=== PATIENT | female | born 1930 | race Caucasian/White ===

== ENCOUNTER 2018-05-20 14:58 | Emergency (ER) | payer MEDICARE ==
[2018-05-20 15:29] LABS: #Basophils 0.1 thou/uL (0.0-0.2); #Eosinphils 0.2 thou/uL (0.0-0.7); #Lymphocytes 1.4 thou/uL (1.20-3.40); #Monocytes 0.6 thou/uL (0.11-0.59); #Neutrophils 4.3 thou/uL (1.40-6.50); %Basophils 0.8 % (0.0-1.0); %Eosinophils 3.6 % (0.0-10.0); %Lymphocytes 21.9 % (21.0-51.0); %Monocytes 8.8 % (0.0-10.0); Hemoglobin 14.1 g/dL (12.0-16.0); Mean Corpuscular HGB CONC 32.9 g/dL (32.0-36.0); Mean Corpuscular Hemoglobin 31.3 pg (27.0-31.0); Mean Corpuscular Volume 95.2 fL (78.0-98.0); Mean Platelet Volume 8.5 fL (7.4-10.4); Platelet Count 192 thou/uL (130-400); RBC Distribution Width 12.5 % (11.5-14.5); White Blood Cell (WBC) Count 6.6 thou/uL (4.8-10.8)
[2018-05-20 15:36] LABS: INR-International Normal Ratio 1.4; Prothrombin Time 16.9 SEC (12.0-14.7)
[2018-05-20 15:37] LABS: PTT 38.9 SEC (22.9-36.1)
--- NOTE | 2018-05-20 15:45 | RAD ---
PORTABLE AP CHEST XRAY: DATE: 05/20/18. HISTORY: The patient feels as if her heart is racing. History of atrial fibrillation. COMPARISON: 10/18/16. FINDINGS: A left subclavian MediPort catheter remains in place. Cardiac silhouette remains enlarged. Vascular calcification is seen in the thoracic aorta. There is mild elevation of the left hemidiaphragm grea ter involving the lateral aspect left hemidiaphragm unchanged from prior exam. Pleural and parenchym al changes of the right lung base have resolved. The lungs do appear clear on today's exam. Remote lower right-sided rib fracture is seen. There is severe left glenohumeral osteoarthropathy again pre sent. No other interval change. IMPRESSION: Cardiomegaly without overt congestive heart failure. POS: TIMOTHY
[2018-05-20 15:51] LABS: ALT (SGPT) 10 U/L (8-55); AST (SGOT) 14 U/L (5-34); Alkaline Phosphatase 91 U/L (40-150); Anion Gap 12 mmol/L (10-20); BUN (Urea Nitrogen) 22 mg/dL (9.8-20.1); Bilirubin, Total 0.6 mg/dL (0.2-1.2); CK (CPK) 37 U/L (29-168); Calc. Creatinine Clearance 0 mL/min (70-130); Calcium 9.9 mg/dL (7.8-10.44); Carbon Dioxide 29 mmol/L (23-31); Chloride 104 mmol/L (98-107); Estimated GFR-MDRD 47; Globulin 3.2 g/dL (2.4-3.5); Glucose 97 mg/dL (83-110); Potassium 3.8 mmol/L (3.5-5.1); Protein, Total 7.2 g/dL (6.0-8.3); Sodium 141 mmol/L (136-145)
[2018-05-20 15:56] LABS: CKMB 1.3 ng/mL (0-6.6); Troponin I Less than 0.010 ng/mL (< 0.028)
== END 2018-05-20 19:30 | disposition home or self-care (01) ==
LOC: ERS 14:58
DX: I48.91 Unspecified atrial fibrillation (principal); I25.10 Atherosclerotic heart disease of native coronary artery without angina pectoris; I11.0 Hypertensive heart disease with heart failure; I50.9 Heart failure, unspecified; Z79.82 Long term (current) use of aspirin; Z79.899 Other long term (current) drug therapy
CPT/HCPCS: 71045; 80053; 82550; 82553; 84484; 85025; 85610; 85730; 93005

== ENCOUNTER 2019-09-06 11:40 | Outpatient (CLI) | payer MEDICARE ==
--- NOTE | 2019-09-06 14:45 | PET ---
Radionucleotide scan with CT attenuation correction HISTORY: Stomach cancer. Initial staging. FINDINGS: Physiologic uptake of radiotracer present throughout the enteric system and along each urin marlon tract. Nonspecific nonmasslike muscular uptake around the shoulders. Left shoulder prosthesis. At the upper stomach near the GE junction, markedly increased radiotracer uptake correlates with the historically stated primary cancer. SUV 17.2. No abnormal uptake is evident within the liver. No other areas of abnormal radiotracer activity. Nondiagnostic CT attenuation correction images show prominent calcification throughout the arterial s tructures. Large hyperdense stones in the dependent portion of the gallbladder lumen. Retroaortic left renal vein. Mild calcified fibroid involvement of the uterus. Severe degenerative changes lumbar spine. Reactive appearing nonpathologic lymph nodes at each inguinal chain. Varicosities of the upper legs. IMPRESSION: Large primary neoplasm of the stomach. No evidence of metastatic disease. Cholelithiasis. Atherosclerosis.
== END 2019-09-06 11:41 | disposition home or self-care (01) ==
LOC: PET 11:40
PROVIDERS: ATTEND Radiology Radiation Oncology
DX: C16.0 Malignant neoplasm of cardia (principal); K80.20 Calculus of gallbladder without cholecystitis without obstruction; I70.90 Unspecified atherosclerosis
CPT/HCPCS: 78815; A9552

== ENCOUNTER 2019-10-07 11:42 | Inpatient (IN) | payer MEDICARE ==
[2019-10-07] MEDS ORDERED: Fentanyl 100 MCG/2 ML VIAL ONE (12:06)
[2019-10-07 12:34] LABS: #Eosinphils 0.1 thou/uL (0.0-0.7); #Lymphocytes 0.2 thou/uL (1.20-3.40); #Monocytes 0.3 thou/uL (0.11-0.59); #Neutrophils 1.8 thou/uL (1.40-6.50); %Lymphocytes 8.5 % (21.0-51.0); %Monocytes 10.9 % (0.0-10.0); %Neutrophils 77.6 % (42.0-75.0); Mean Corpuscular HGB CONC 34.7 g/dL (32.0-36.0); Mean Corpuscular Hemoglobin 31.6 pg (27.0-31.0); Mean Corpuscular Volume 91.3 fL (78.0-98.0); Mean Platelet Volume 8.4 fL (7.4-10.4); Platelet Count 161 thou/uL (130-400); RBC Distribution Width 13.2 % (11.5-14.5); Red Blood Cell (RBC) Count 3.49 mill/uL (4.20-5.40); White Blood Cell (WBC) Count 2.3 thou/uL (4.8-10.8)
--- NOTE | 2019-10-07 12:41 | RAD ---
PORTABLE CHEST: 10/07/2019 PROVIDED CLINICAL HISTORY: Chest pain. COMPARISON: 05/20/2018 FINDINGS: The cardiac silhouette appears enlarged. A left subclavian implanted port is redemonstrated in simila r position. Vascular calcification involves the aortic arch. No focal consolidation, pleural fluid or pneumothorax apparent. IMPRESSION: No evidence for an acute cardiopulmonary process. POS: ADILENE
[2019-10-07 12:51] LABS: ALT (SGPT) 8 U/L (8-55); AST (SGOT) 13 U/L (5-34); Albumin 3.4 g/dL (3.4-4.8); Alkaline Phosphatase 72 U/L (40-110); Anion Gap 13 mmol/L (10-20); BUN (Urea Nitrogen) 17 mg/dL (9.8-20.1); Bilirubin, Total 0.5 mg/dL (0.2-1.2); Calc. Creatinine Clearance 0 mL/min (70-130); Calcium 8.5 mg/dL (7.8-10.44); Carbon Dioxide 26 mmol/L (23-31); Chloride 100 mmol/L (98-107); Estimated GFR-MDRD 61; Glucose 147 mg/dL (83-110); Lipase 18 U/L (8-78); Magnesium 1.8 mg/dL (1.6-2.6); Potassium 3.4 mmol/L (3.5-5.1); Protein, Total 5.4 g/dL (6.0-8.3); Sodium 136 mmol/L (136-145)
[2019-10-07] MEDS ORDERED: Iopamidol-370 76% 500 ML 1 ML ONE (13:32)
--- NOTE | 2019-10-07 13:47 | CT ---
CT ANGIO CHEST PERFORMED WITH INTRAVENOUS CONTRAST ENHANCEMENT WITH 3D RECONSTRUCTIONS: HISTORY: Adenocarcinoma of the GE junction. Chest pain and low grade fever. FINDINGS: There are some atelectatic changes in the lung bases, slightly greater within the left lung base. The re is no confluent infiltrative process. There is an area of slight nodular parenchymal change adjace nt to the aortic arch. I would favor that this represents nodular scarring and it measures approximat roberta 9.6 mm in size. In comparing to a previous PET scan examination from 09/06/2019, it is stable and is not described as showing any uptake on that PET scan. There is no significant mediastinal or hilar adenopathy. There is suggestion of some wall thickening to the distal esophagus. The thoracic aorta is normal in caliber. There is good pulmonary artery opacification and no CT evidence for pulmonary embolus. The visualized liver parenchyma shows no focal findings. A large gallstone is noted. IMPRESSION: 1. No CT evidence for pulmonary embolus. 2. Minimal atelectatic changes in the right base and slightly more pronounced left lower lobe atelect asis and a small left effusion. 3. Distal esophageal wall thickening. 4. Gallstones. 5. No CT evidence for pulmonary embolus. POS: DEMAR
[2019-10-07] MEDS ORDERED: Aspirin Chewable 81 MG TAB ONE (15:48)
[2019-10-07] MEDS ORDERED: Piperacillin/Tazobactam 3.375 GM in Sodium Chloride 0.9% 100 ML IVPB SCH (18:00)
[2019-10-07] MEDS ORDERED: Vancomycin HCl 1.25 GM in Sodium Chloride 0.9% 250 ML 250 ML IVPB SCH (20:00)
[2019-10-07] MEDS: Sodium Chloride 0.9% 1,000 ML IV SCH (21:33)
[2019-10-07] MEDS: Pantoprazole 40 MG VIAL IVP SCH (21:42)
[2019-10-07] MEDS: Piperacillin/Tazobactam 3.375 GM in Sodium Chloride 0.9% 100 ML IVPB SCH (21:48)
[2019-10-07] MEDS: Vancomycin HCl 1.25 GM in Sodium Chloride 0.9% 250 ML 250 ML IVPB SCH (23:11)
[2019-10-07] MEDS ORDERED: Acetaminophen 650 MG Suppository PR PRN (23:42)
[2019-10-07] MEDS ORDERED: Morphine 2 MG/ML SYRINGE SLOW IVP PRN (23:43)
--- NOTE | 2019-10-08 00:09 | HP ---
CHIEF COMPLAINT: Chest and abdominal pain. HISTORY OF PRESENT ILLNESS: This patient is an 89-year-old female, followed by Dr. Hector Green who initially started developing some dysphagia. Some time ago, she had a shoulder surgery, got through a left shoulder replacement, followed up with her PCP, who referred her for esophageal dilatation. At that time, the patient was discovered to have a cancer at the gastroesophageal junction. She started chemotherapy and radiation therapy on the same day on 09/24. Subsequent to that, the patient had mild nausea that resolved. Then, she developed what she thought were more like cold symptoms with cough, some low-grade fever, and gradually she has developed increased pain between her shoulder blades and in the center of her chest. She describes it as a pressure type pain that is in the center of the chest, radiating straight through to her back. She has no associated nausea or vomiting. Frequently, has a sensation like she needs to belch. She does have frequent cough that is productive of a discolored yellow sputum. She continues to have a waxing and waning pattern with her dysphagia, some days being able to eat fairly well, other days having to pause to allow passage through the esophagus. The patient also reports that she has diarrhea that started about 3 days ago, frequent watery stools. She was actually taking MiraLAX and quit that 3 days ago when these symptoms started. She has not had any since she has been here at the hospital, which has been a bit out of the ordinary typically having about 5 per day. REVIEW OF SYSTEMS: Denies any shortness of breath. Just the tightness feeling. She has been voiding fairly well and again having a diarrhea and fever as mentioned above. All other systems reviewed, pertinent positives and negatives noted in the HPI. PAST MEDICAL HISTORY: Hypertension, hyperlipidemia, atrial fibrillation, chronic kidney disease stage 3, breast cancer, leukemia, and chronic right upper extremity lymphedema for one year. PAST SURGICAL HISTORY: Right mastectomy, bilateral total knee replacements, left shoulder replacement in April, and a MediPort placement. FAMILY HISTORY: Mother of breast cancer. Father of an IA. SOCIAL HISTORY: Nonsmoker, nondrinker, nondrug user. . She lives independently with family nearby. She is a DNR and her son, daughter or granddaughter would all be surrogate decision makers for her should that become necessary. ALLERGIES: BACITRACIN, NEOMYCIN, AND POLYMYXIN B. CURRENT MEDICATIONS: 1. Eliquis 5 mg b.i.d. 2. Clonidine 0.1 mg at bedtime. 3. Rosuvastatin 5 mg daily. 4. Pantoprazole 40 mg one p.o. daily. 5. Metoprolol ER 200 mg daily. 6. Lasix 40 mg daily. 7. Amiodarone 200 mg one half tablet daily. 8. Olmesartan 40 mg daily. 9. PreserVision two tablets daily. 10. Super B Complex one tablet daily. 11. CoQ10 mg p.o. daily. PHYSICAL EXAMINATION: VITAL SIGNS: Heart rate 70s with BP 160 over 70s, respirations 16. GENERAL APPEARANCE: Age-appropriate female, in no distress. She is awake, alert, pleasant, cooperative. HEENT: PERRL. She has no OP lesions. NECK: Supple and symmetric. HEART: Regular rate and rhythm with no murmurs, gallops, or rubs. LUNGS: Clear to auscultation bilaterally with no wheezes or rales. ABDOMEN: Soft, nontender, and nondistended. Positive bowel sounds. No masses. No organomegaly. EXTREMITIES: No cyanosis or clubbing. She has edema of the right upper extremity which is lymphedema and nonpitting. PSYCH: Normal affect and behavior. NEUROLOGICAL: Normal cognition. Normal cranial nerve function. No focal deficits. Moves all extremities spontaneously. IMAGING STUDIES: Chest x-ray negative. CT of the chest PE protocol shows no evidence of PE. Minimal atelectatic changes at the right base, slightly more pronounced left lower atelectasis and small left effusion. Distal esophageal wall thickening, gallstones. No evidence of PE. EKG shows nonspecific findings, nothing diagnostic of ischemia. LABORATORY DATA: White count 2.3, hemoglobin 10, platelets 161. Sodium 136, potassium 3.4, chloride 100, CO2 of 26, BUN 17, creatinine 0.88, glucose 147, lactic acid 2.1, magnesium 1.8, AST 13, ALT 8. Troponin less than 0.01. BNP is 160. Total protein 5.4, albumin 3.4. Flu screen is negative. IMPRESSION AND PLAN: 1. Esophageal cancer with related severe dysphagia. At this point, the patient is very intermittently able to take any p.o. and does not appear to be capable of taking adequate amounts at this time, therefore she is admitted to the hospital, started on IV fluids. Concerning for the possibility of her radiation esophagitis, we will consult Radiation Oncology. We will likely need to consider involving GI. 2. Esophageal junction cancer, on chemotherapy. Consult Radiation Oncology with Dr. Anderson and Medical Oncology with Dr. Hsu. 3. Fever with productive cough concerning for pneumonia, which is not manifested on chest x-ray because of dehydration. Also concerning for the possibility could be some recurrent aspiration. We will cover with vancomycin and Zosyn, especially in light of the mild leukopenia. 4. Mild leukopenia, likely related to chemotherapy. 5. History of atrial fibrillation, holding her Eliquis until we can determine better what is going to need to be done for the dysphagia and potential esophagitis. We will continue on her metoprolol. 6. History of diastolic heart failure, holding Lasix. She is unable to adequately hydrate at the moment. 7. Hypertension. Continuing olmesartan and metoprolol holding clonidine for now. 8. Hyperlipidemia. Holding rosuvastatin until she can swallow better. Job ID: [id number]
[2019-10-08] MEDS: Piperacillin/Tazobactam 3.375 GM in Sodium Chloride 0.9% 100 ML IVPB SCH ×4 (04:15→20:54)
[2019-10-08 05:03] LABS: Anion Gap 11 mmol/L (10-20); BUN (Urea Nitrogen) 11 mg/dL (9.8-20.1); Calc. Creatinine Clearance 74 mL/min (70-130); Calcium 8.1 mg/dL (7.8-10.44); Carbon Dioxide 25 mmol/L (23-31); Chloride 104 mmol/L (98-107); Estimated GFR-MDRD 86; Glucose 87 mg/dL (83-110); Sodium 137 mmol/L (136-145)
[2019-10-08 05:05] LABS: Potassium 2.8 mmol/L (3.5-5.1)
[2019-10-08 05:07] LABS: Band 11 % (5-11); Eosinophils 1 % (0-10); Hypochromia SLIGHT = 6-15 cells (100X) (0-5/hpf); Lymphocytes 9 % (21-51); MDiff Complete? YES; Mean Corpuscular HGB CONC 33.6 g/dL (32.0-36.0); Mean Corpuscular Hemoglobin 30.5 pg (27.0-31.0); Mean Corpuscular Volume 90.9 fL (78.0-98.0); Mean Platelet Volume 8.3 fL (7.4-10.4); Monocytes 8 % (0-10); Neutrophil 71 % (42-75); Platelet Count 150 thou/uL (130-400); Platelet Morphology Comment Appears Adequate; RBC Distribution Width 13.3 % (11.5-14.5); Red Blood Cell (RBC) Count 3.28 mill/uL (4.20-5.40); White Blood Cell (WBC) Count 2.1 thou/uL (4.8-10.8)
[2019-10-08] MEDS ORDERED: Potassium Chloride 10 MEQ in Premix Bag 1 BAG IVPB SCH (05:15)
[2019-10-08] MEDS ORDERED: Potassium Chloride 20 MEQ in Premix Bag 1 BAG IVPB SCH (05:15)
[2019-10-08] MEDS: Potassium Chloride 20 MEQ in Premix Bag 1 BAG IVPB SCH ×3 (05:39→10:51)
[2019-10-08] MEDS ORDERED: FLU VACC TS2019-20(65YR UP)/PF 180 MCG/0.5 ML SYRINGE IM ONE (09:00)
[2019-10-08] MEDS: Pantoprazole 40 MG VIAL IVP SCH ×2 (09:23→19:53)
--- NOTE | 2019-10-08 10:34 | PRG ---
DATE OF SERVICE: 10/08/2019 SUBJECTIVE: Ms. Palomares is an 89-year-old female, well known to me. 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 She was admitted to the hospital yesterday because of chest pain and being unable to swallow. She has also had some cough, which is mostly nonproductive. She has had some low-grade fever since Tuesday. The chest pain seems to be better with some belching. She did have a CT angiogram which was negative, and a chest x-ray which was negative. OBJECTIVE: VITAL SIGNS: T-max 100.2, current temperature is 99.1, blood pressure 148/67, pulse is 69, respirations 16, O2 saturations 93% on room air. Height 5 feet and 3 inches. Weight 169 pounds. CONSTITUTIONAL: She is alert and oriented, in no apparent distress. She is well developed and well nourished. Karnofsky performance status is 70%. HEENT: Eyes; pupils are equal, round, and reactive to light. Extraocular movements are intact. ENT; oral cavity and oropharynx are normal without lesion or erythema. Palate elevates symmetrically. Gingiva is intact. NECK: Supple without cervical or supraclavicular adenopathy. No thyromegaly. Larynx midline. LUNGS: Breathing nonlabored. There are some crackles in the right lower lobe. Otherwise, clear to auscultation and percussion. CARDIOVASCULAR/HEART: Regular rate and rhythm without murmur. EXTREMITIES: No lower extremity edema. ABDOMEN: Bowel sounds are present. Soft, nontender, nondistended without mass or hepatosplenomegaly. Liver percusses to normal size. RADIOLOGIC DATA: CT angiogram and chest x-ray were personally reviewed and were negative for either metastatic disease or evidence of pneumonia. LABORATORY DATA: CBC; white blood cell count was 2100, hemoglobin 10.0, hematocrit of 29.8, platelet count 150,000. Yesterday, her white count was 2.3 with a neutrophil count of 1.8. Chemistry group showed a potassium of 2.8. ASSESSMENT: Ms. 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 I think her signs and symptoms are likely from obstruction from her disease. She could possibly have pneumonia with her low-grade fevers, but is currently on antibiotics for that. PLAN: I would defer to Medical Oncology regarding her lowered white blood cell count and pneumonia possibility. She is on antibiotics that would cover this. She is not neutropenic. I do not think her signs and symptoms are related to radiation esophagitis. I think most likely these are related to obstruction from her tumor. I think she is going to need a feeding tube. Ordinarily, if we were going to consider surgical resection after chemotherapy and radiation, the feeding tube would need to be a J-tube and the placement of which could be a critical considering that they do minimally invasive esophagectomies. However, given her age and other comorbidities, I do not think she is a good candidate for surgical resection. She does not wish to pursue surgical resection either. Therefore, I think the feeding tube could even be a PEG tube if this is possible. It may not be possible given her clinical obstruction as they may not be able to pass the scope past the tumor mass. However, they may be able to pass the scope past the mass in place of PEG tube. I agree with having GI evaluate her. In terms of her cancer, I think we can continue her treatment with radiation. She is eager to do so as well. We will make arrangements for her to continue her treatment while she is here in the hospital. Job ID: [id number]
[2019-10-08] MEDS: Losartan 25 MG TAB PO SCH (11:47)
[2019-10-08] MEDS: Amiodarone 200 MG TAB PO SCH (11:47)
[2019-10-08] MEDS: Sodium Chloride 0.9% 1,000 ML IV SCH ×2 (11:47→19:54)
--- NOTE | 2019-10-08 13:45 | CON ---
DATE OF CONSULTATION: 10/08/2019 REQUESTING PHYSICIAN: Yuri Villela MD REASON FOR CONSULTATION: Dysphagia, consider PEG tube placement. HISTORY OF PRESENT ILLNESS: Jose Palomares is a very pleasant 89-year-old woman. She has atrial fibrillation and is on Eliquis. She has a prior history of leukemia and breast cancer. She reports that starting sometime last summer, she began to have some dysphagia to solids. She would have to chew her food more thoroughly, wash her food down with more water, eat more slowly and would feel as if food was hanging up in the mid chest. She eventually underwent upper endoscopy elsewhere in late July 2019. Evidently this demonstrated a mass at the GE junction and was found to represent a carcinoma on biopsies. I do not have any of those reports, but the patient was finally started on radiation and chemotherapy on 09/24/2019 and has been doing this for the past couple of weeks. She reports throughout this time, she has continued to have dysphagia, which has been slowly progressive. This reached the point over the past several days, where she has felt unable to take in adequate calories, liquids will go down, but not solids. She was evaluated here with a CT of the chest and thorax and there is wall thickening in the distal esophagus. She was seen by Dr. Anderson, who has recommended we consider PEG tube placement. Notably, she is not considered to be a surgical candidate. She is DNR, but she is open to enteral nutrition. REVIEW OF SYSTEMS: Full review of systems including constitutional, head, eyes, ears, nose, throat, GI, , cardiovascular, respiratory, musculoskeletal, and neurologic systems are negative except as noted in the HPI. PAST MEDICAL HISTORY: Atrial fibrillation, hypertension, hyperlipidemia, diabetes, chronic kidney disease, breast cancer, leukemia, chronic right upper extremity lymphedema, right-sided mastectomy, bilateral total knee replacement, left shoulder replacement in April 2019, Mediport placement, and cancer of the GE junction diagnosed in July 2019. FAMILY HISTORY: Mother of breast cancer. SOCIAL HISTORY: No smoking, alcohol, or drug use. She is . She is DNR, has good family support. ALLERGIES: BACITRACIN, NEOMYCIN, AND POLYMYXIN B. OUTPATIENT MEDICATIONS: 1. Eliquis 5 mg b.i.d., this was held today. 2. Clonidine. 3. Rosuvastatin. 4. Pantoprazole 40 mg daily. 5. Metoprolol. 6. Lasix 40 mg daily. 7. Amiodarone. 8. Olmesartan. 9. PreserVision. 10. Super B complex. 11. Coenzyme Q10. PHYSICAL EXAMINATION: VITAL SIGNS: Temperature 99.1, pulse 83, blood pressure 154/71, and 95% oxygen saturation on room air. GENERAL: No acute distress, resting in bed comfortably. SKIN: No jaundice. No rashes were palpable. HEENT: Eyes, no scleral icterus. Extraocular movements intact. ENT, mucous membranes moist. No oral lesions. LYMPH: No submandibular or supraclavicular lymphadenopathy. THYROID: Nontender to palpation. HEART: Regular rate and rhythm. LUNGS: Clear to auscultation bilaterally. ABDOMEN: Nondistended. Bowel sounds present. Soft and nontender to palpation throughout. EXTREMITIES: No peripheral edema. VESSELS: Radial pulses 2+ bilaterally. NEURO: Cranial nerves 2 through 12 intact bilaterally. No focal deficits. LABORATORY STUDIES: WBC 2.1 with 77% neutrophils, hemoglobin 10.0, and platelets 150. Sodium 137, potassium 2.8, BUN 11, creatinine 0.65, and calcium 8.1. BNP is 160.3. Lipase normal at 18. LFTs all normal with total bilirubin 0.5, alkaline phosphatase 72, AST 13, and ALT 8. Troponin negative. IMAGING STUDIES: CT of the chest performed yesterday shows distal esophageal wall thickening. No CT evidence for pulmonary embolus. Some left lower lobe atelectasis, which is minimal. There are gallstones. ASSESSMENT AND PLAN: 1. Dysphagia, progressive. 2. Carcinoma of the GE junction, undergoing chemotherapy and radiation. The patient is not felt to be an operative candidate, but is undergoing chemotherapy and radiation. I agree that enteral feedings are good idea given her overall goals of care. It is not clear to what degree this tumor is causing obstruction of the distal esophagus. It is possible that this may be too small in area to endoscopically place a PEG tube. I cannot really tell from the CT scan. It is certainly worth a try. We will plan for EGD with probable PEG placement tomorrow. If PEG placement is not possible given the tumor size and location, the patient would require surgical consultation for PEG placement thereafter. Continue to hold [email or web address]. Thank you for the consultation. Please call anytime with questions or concerns. Job ID: [id number]
--- NOTE | 2019-10-08 14:51 | CON ---
DATE OF CONSULTATION: REASON FOR CONSULTATION: EG junction adenocarcinoma. HISTORY OF PRESENT ILLNESS: Ms. Palomares is an 89-year-old female with past medical history of APL, breast cancer, and newly diagnosed EG junction adenocarcinoma. She is currently undergoing treatment with carboplatin, Taxol, and radiation. She has received 2 cycles of chemo and is due for her 3rd today. She presented to the emergency room with chest pain and dysphagia. The patient has been tolerating chemo well with mild nausea 2 days after treatment. She has been able to eat soft foods, soups, and chopped meat. Her weight has been stable throughout treatment. On admission, a CT angio was done, which did not show any pulmonary emboli. Her white count was 2.3, but her ANC was normal at 1.8. She was mildly anemic. There is some questionable pneumonia and she has been placed on antibiotics. PAST MEDICAL HISTORY: 1. Acute promyelocytic leukemia in 2009. 2. Breast cancer in 2007. 3. Esophageal cancer in 2019. 4. Remote history of DVT. 5. Hypertension. 6. Hyperlipidemia. 7. Sleep apnea. 8. Atrial fibrillation. PAST SURGICAL HISTORY: 1. Shoulder surgery. 2. Right mastectomy. ALLERGIES: TO NEOSPORIN. HOME MEDICATIONS: 1. Amiodarone. 2. Catapres. 3. Lasix. 4. Toprol-XL. 5. Olmesartan. 6. Protonix. 7. Crestor. 8. Eliquis. FAMILY HISTORY: Mother had breast cancer in her 60s. SOCIAL HISTORY: . Lives alone. No alcohol, tobacco, or illicit drug use. REVIEW OF SYSTEMS: Ten-point review of systems is negative except for chest pain and dysphagia. PHYSICAL EXAMINATION: VITAL SIGNS: Temperature is 99.1, pulse is 83, respiratory rate 18, BP is 154/ 71, and she is 95% on room air. GENERAL: This is a well-developed, well-nourished female, in no acute distress. HEENT: Normocephalic and atraumatic. NECK: Supple. CV: Regular rate and rhythm. LUNGS: Clear. ABDOMEN: Soft and nontender. Bowel sounds are positive. EXTREMITIES: There is no clubbing or cyanosis. SKIN: No rash. HEMATOLOGIC: No petechiae or purpura. NEUROLOGIC: Nonfocal. PERTINENT LABORATORY AND X-RAYS: Current WBCs are 2.1, hemoglobin 10, hematocrit 29.8, platelet count is 150,000, 71% neutrophils, 11% bands, and 9% lymphocytes. Sodium 137, potassium 2.8, chloride 104, CO2 is 25, BUN is 11, creatinine 0.65. Lactic acid is 1. Calcium 8.1. Magnesium 1.8. Bilirubin 0.5, AST is 13, ALT is 8, and alkaline phosphatase is 72. BNP is 160. Serum total protein 5.4, albumin 3.4, and globulin 2. Lipase 18. CT angiogram showed no pulmonary emboli, but questionable pneumonia. ASSESSMENT: 1. Esophagogastric junction adenocarcinoma, on concurrent chemoradiation. 2. Worsening dysphagia. 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 Despite her advanced age, she lives independently, and has a good family support. The HER2 positivity is associated with an improved prognosis, so the decision was made to treat her with concurrent chemotherapy and radiation. She, however, is not a surgical candidate and she wishes to have no surgery for her cancer, so recommendation for PEG tube placement is supported. The patient wishes to proceed and is planned for tomorrow. We will provide supportive care. Thank you for the consult. We will follow along with her hospital course. Job ID: [id number] [facility]
--- NOTE | 2019-10-08 15:45 | PDOC.HOSPP ---
- Subjective Encounter Date: 10/08/19 Subjective: Doing ok. Says she was hungry last night and that made her uncomfortable. She is ready to what is necessary to get fed. - Objective Vital Signs & Weight: Vital Signs (12 hours) Temp Pulse Resp BP Pulse Ox 10/08/19 12:03 99.1 F 83 18 154/71 H 95 10/08/19 08:10 99.1 F 69 16 148/67 H 93 L 10/08/19 08:00 93 L 10/08/19 04:39 99.0 F 74 16 141/65 H 94 L Weight Weight 169 lb 8 oz I&O: 10/07/19 10/08/19 10/09/19 06:59 06:59 06:59 Intake Total 639 Balance 639 Result Diagrams: 10/08/19 04:37 10/08/19 04:37 Hospitalist ROS - Medication Medications: Active Medications Generic Name Dose Route Start Last Admin Trade Name Freq PRN Reason Stop Dose Admin Amiodarone HCl 100 mg 10/08/19 09:00 10/08/19 11:47 Cordarone PO Not Given DAILY AC Sodium Chloride 1,000 mls @ 75 mls/hr 10/07/19 17:00 10/08/19 11:47 Normal Saline 0.9% IV Not Given .[id number] AC Piperacillin Sod/Tazobactam 100 mls @ 200 mls/hr 10/07/19 22:00 10/08/19 09: 30 Sod 3.375 gm/ Sodium Chloride IVPB 100 mls 0400,1000,1600,2200 AC Administration Vancomycin HCl 1.25 gm/ Sodium 250 mls @ 166.667 mls/hr 10/07/19 23:00 23:11 Chloride IVPB 250 mls 2300 AC Administration Losartan Potassium 100 mg 10/08/19 09:00 10/08/19 11:47 Cozaar PO Not Given DAILY AC Morphine Sulfate 2 mg 10/07/19 23:43 10/08/19 04:19 Morphine SLOW IVP 2 mg Q4H PRN Administration Severe Pain (7-10) Pantoprazole Sodium 40 mg 10/07/19 21:00 10/08/19 09:23 Protonix IVP 40 mg Q12HR AC Administration Sodium Chloride 10 ml 10/07/19 21:00 10/08/19 07:52 Flush - Normal Saline IVF 10 ml Q12HR AC Administration Sodium Chloride 10 ml 10/07/19 19:22 10/08/19 04:22 Flush - Normal Saline IVF 10 ml PRN PRN Administration Saline Flush - Exam General Appearance: NAD, awake alert Neck: supple, symmetric, no JVD, no thyromegaly, no lymphadenopathy, no carotid bruit Heart: RRR, no murmur, no gallops, no rubs, normal peripheral pulses Respiratory: no wheezes, no ronchi, normal chest expansion, no tachypnea, normal percussion Respiratory - other findings: Mild right basilar rales. 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 - MALIGNANT NEOPLASM OF ESOPHAGUS, UNSPECIFIED Status: Acute (2) Dysphagia Code(s): R13.10 - DYSPHAGIA, UNSPECIFIED Status: Acute (3) Atrial fibrillation with controlled ventricular response Code(s): I48.91 - UNSPECIFIED ATRIAL FIBRILLATION Status: Chronic (4) CKD (chronic kidney disease), stage III Status: Chronic (5) Chronic anticoagulation Code(s): Z79.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 Anderson this morning. Discussed the case with Dr. Robert this morning. Holding Eliquis in anticipation of attempted PEG placement. Unclear if it will be possible at this time. She is willing to try. If not, may need to consider surgical options to place the PEG. Appears to be have some obstruction and increasing her risk for aspiration. The fever and cough are likely some aspiration pneumonitis. Continue IV abx to cover that. Holding Eliquis for procedure. I will try to give the metoprolol po. Using 25 mg tabs x 4 rather than the larger 100 mg tab. Ok to miss the amio for a day or two.
[2019-10-08] MEDS: Vancomycin HCl 1.25 GM in Sodium Chloride 0.9% 250 ML 250 ML IVPB SCH (22:54)
[2019-10-09] MEDS: Piperacillin/Tazobactam 3.375 GM in Sodium Chloride 0.9% 100 ML IVPB SCH ×4 (04:00→20:39)
[2019-10-09 08:28] LABS: Hemoglobin 10.4 g/dL (12.0-16.0); Mean Corpuscular HGB CONC 33.6 g/dL (32.0-36.0); Mean Corpuscular Hemoglobin 30.9 pg (27.0-31.0); Mean Platelet Volume 7.8 fL (7.4-10.4); Platelet Count 159 thou/uL (130-400); RBC Distribution Width 13.4 % (11.5-14.5); Red Blood Cell (RBC) Count 3.36 mill/uL (4.20-5.40); White Blood Cell (WBC) Count 2.5 thou/uL (4.8-10.8)
[2019-10-09 08:44] LABS: Anion Gap 12 mmol/L (10-20); BUN (Urea Nitrogen) 8 mg/dL (9.8-20.1); Calc. Creatinine Clearance 82 mL/min (70-130); Calcium 8.4 mg/dL (7.8-10.44); Carbon Dioxide 22 mmol/L (23-31); Chloride 107 mmol/L (98-107); Estimated GFR-MDRD Greater than 90; Glucose 75 mg/dL (83-110); Potassium 3.1 mmol/L (3.5-5.1); Sodium 138 mmol/L (136-145)
[2019-10-09 09:00] LABS: Band 11 % (5-11); Eosinophils 2 % (0-10); Lymphocytes 15 % (21-51); MDiff Complete? YES; Monocytes 6 % (0-10); Myelocyte 1 % (0-0); Neutrophil 65 % (42-75); Platelet Morphology Comment Appears Adequate; Polychromasia SLIGHT = 2-3 cells (100X) (0-2/hpf)
[2019-10-09] MEDS: Amiodarone 200 MG TAB PO SCH (09:00)
[2019-10-09] MEDS: Pantoprazole 40 MG VIAL IVP SCH ×2 (09:00→20:38)
[2019-10-09] MEDS: Sodium Chloride 0.9% 1,000 ML IV SCH ×3 (09:46→20:39)
[2019-10-09] MEDS: Losartan 25 MG TAB PO SCH (10:50)
[2019-10-09] MEDS ORDERED: PROPOFOL 200 MG/20 ML VIAL ONE (11:53)
[2019-10-09] MEDS ORDERED: Ketamine 50 MG/ML (10ML VIAL) ONE (13:57)
[2019-10-09] MEDS ORDERED: Potassium Chloride 40 MEQ in Premix Bag 1 BAG IVPB SCH (15:30)
--- NOTE | 2019-10-09 15:32 | OP ---
DATE OF PROCEDURE: 10/09/2019 PREPROCEDURE DIAGNOSIS: Oropharyngeal dysphagia secondary to esophageal cancer and treatment effect. POSTOPERATIVE DIAGNOSIS: Percutaneous endoscopic gastrostomy tube placed by Ponsky pull technique. ANESTHESIA: TIVA. The patient is on antibiotics of Zosyn and vancomycin, upstairs already. RECOMMENDATIONS: 1. Begin to use tube for tube feeds in 3 hours. 2. Wash the PEG tube site q.a.m. 3. We will check a PEG tomorrow. PROCEDURE IN DETAIL: After the patient was informed of the risks, benefits, possible complication of endoscopy including perforation, bleeding, reaction to medication, aspiration, injury to intraabdominal organs, informed consent was obtained. The patient was brought to endoscopy suite, where she was sedated in gradual fashion. Once she was comfortable, a bite block was placed inside the orifice. The endoscope was advanced through the bite block into the esophagus, carefully intubated. The distal esophagus notable for erosions, ulceration, and narrowing, consistent with radiation effect. There was also a mass seen, but was difficult to delineate this. There was quite a bit of blood there. We were able to gently maneuver the scope past this into the stomach, which was normal in forward and retroflexed views. The duodenum was normal to the 3rd portion. The scope was then brought back in the stomach. An adequate place for PEG tube placement was identified by transillumination and finger indentation. The PEG tube was then placed by Ponsky pull technique. Second look confirmed good placement. The scope was removed. The patient tolerated the procedure well and was brought to recovery room in stable condition. Job ID: [id number]
[2019-10-09] MEDS ORDERED: Potassium Chloride 40 MEQ in Sodium Chloride 0.9% 250 ML 250 ML IVPB SCH (16:00)
[2019-10-09] MEDS ORDERED: Losartan 25 MG TAB PER TUBE SCH (17:15)
[2019-10-09] MEDS ORDERED: Metoprolol Tartrate 25 MG TAB PER TUBE SCH (17:15)
[2019-10-09] MEDS: Acetaminophen 650 MG/20.3 ML UDCUP PER TUBE PRN ×2 (18:34→23:31)
--- NOTE | 2019-10-09 21:23 | PDOC.HOSPP ---
- Subjective Encounter Date: 10/09/19 Subjective: Tolerated the procedure well. Has a little headache and feels a little drowsy. - Objective Vital Signs & Weight: Vital Signs (12 hours) Temp Pulse Resp BP BP Pulse Ox 10/09/19 20:38 165/73 H 10/09/19 19:38 99.8 F H 71 18 188/86 H 94 L 10/09/19 16:00 98.5 F 78 16 165/78 H 96 10/09/19 10:30 97.8 F 70 16 153/71 H 99 Weight Admit Weight 169 lb 8 oz Weight 169 lb 8 oz I&O: 10/08/19 10/09/19 10/10/19 06:59 06:59 06:59 Intake Total 1539 Balance 1539 Result Diagrams: 10/09/19 08:13 10/09/19 08:13 Hospitalist ROS - Medication Medications: Active Medications Generic Name Dose Route Start Last Admin Trade Name Freq PRN Reason Stop Dose Admin Acetaminophen 650 mg 10/09/19 16:51 10/09/19 18:34 Tylenol Elixir PER TUBE 650 mg Q6H PRN Administration Pain Amiodarone HCl 100 mg 10/08/19 09:00 10/09/19 09:00 Cordarone PO Not Given DAILY AC Sodium Chloride 1,000 mls @ 75 mls/hr 10/07/19 17:00 10/09/19 20:39 Normal Saline 0.9% IV Not Given .[id number] AC Piperacillin Sod/Tazobactam 100 mls @ 200 mls/hr 10/07/19 22:00 10/09/19 20: 39 Sod 3.375 gm/ Sodium Chloride IVPB 100 mls 0400,1000,1600,2200 AC Administration Vancomycin HCl 1.25 gm/ Sodium 250 mls @ 166.667 mls/hr 10/07/19 23:00 22:54 Chloride IVPB 250 mls 2300 AC Administration Losartan Potassium 100 mg 10/08/19 09:00 10/09/19 10:50 Cozaar PO Not Given DAILY AC Metoprolol Succinate 100 mg 10/09/19 09:00 10/09/19 17:12 Toprol Xl PO 100 mg DAILY AC Administration Morphine Sulfate 2 mg 10/07/19 23:43 10/08/19 04:19 Morphine SLOW IVP 2 mg Q4H PRN Administration Severe Pain (7-10) Pantoprazole Sodium 40 mg 10/07/19 21:00 10/09/19 20:38 Protonix IVP 40 mg Q12HR AC Administration Sodium Chloride 10 ml 10/07/19 21:00 10/09/19 20:39 Flush - Normal Saline IVF 10 ml Q12HR AC Administration Sodium Chloride 10 ml 10/07/19 19:22 10/08/19 04:22 Flush - Normal Saline IVF 10 ml PRN PRN Administration Saline Flush - Exam General Appearance: NAD, awake alert Heart: RRR, no murmur, no gallops, no rubs, normal peripheral pulses Respiratory: CTAB, no wheezes, no rales, no ronchi, normal chest expansion, no tachypnea, normal percussion Gastrointestinal: soft, non-tender, non-distended, normal bowel sounds, no palpable masses, no hepatomegaly, no splenomegaly, no bruit Extremities: no cyanosis, no clubbing, no edema Skin: normal turgor Neurological: no focal deficits Musculoskeletal: normal tone Psychiatric: normal affect, normal behavior, A&O x 3 Hosp A/P (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 - MALIGNANT NEOPLASM OF ESOPHAGUS, UNSPECIFIED Status: Acute (2) Dysphagia Code(s): R13.10 - DYSPHAGIA, UNSPECIFIED Status: Acute (3) Atrial fibrillation with controlled ventricular response Code(s): I48.91 - UNSPECIFIED ATRIAL FIBRILLATION Status: Chronic (4) CKD (chronic kidney disease), stage III Status: Chronic (5) Chronic anticoagulation Code(s): 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 Initiate PEG feeds. Initiate PEG medication admin. Holding Eliquis. Tumor appeared "bloody". May consider resuming it tomorrow. Appears to be have some obstruction and increasing her risk for aspiration. The fever and cough are likely some aspiration pneumonitis. Continue IV abx to cover that. May be able to convert to enteral antibiotics via PEG. Can likely DC when PEG feeds are stabilized with enteral abx. Will continue to get treatment with chemo and XRT.
[2019-10-09 22:24] LABS: Vancomycin, Trough 6.8 ug/mL
[2019-10-09] MEDS ORDERED: Vancomycin HCl 1 GM in Premix Bag 1 BAG IVPB SCH (23:00)
[2019-10-10] MEDS: Piperacillin/Tazobactam 3.375 GM in Sodium Chloride 0.9% 100 ML IVPB SCH ×4 (04:24→22:08)
[2019-10-10 06:32] LABS: Anion Gap 10 mmol/L (10-20); BUN (Urea Nitrogen) 9 mg/dL (9.8-20.1); Calc. Creatinine Clearance 75 mL/min (70-130); Calcium 8.3 mg/dL (7.8-10.44); Carbon Dioxide 23 mmol/L (23-31); Chloride 108 mmol/L (98-107); Estimated GFR-MDRD 88; Glucose 121 mg/dL (83-110); Sodium 138 mmol/L (136-145)
[2019-10-10 06:46] LABS: Band 5 % (5-11); Eosinophils 4 % (0-10); Hypochromia SLIGHT = 6-15 cells (100X) (0-5/hpf); Lymphocytes 19 % (21-51); MDiff Complete? YES; Mean Corpuscular HGB CONC 34.7 g/dL (32.0-36.0); Mean Corpuscular Hemoglobin 31.4 pg (27.0-31.0); Mean Corpuscular Volume 90.6 fL (78.0-98.0); Mean Platelet Volume 7.9 fL (7.4-10.4); Monocytes 15 % (0-10); Neutrophil 57 % (42-75); Platelet Count 180 thou/uL (130-400); Platelet Morphology Comment Appears Adequate; RBC Distribution Width 13.4 % (11.5-14.5); Red Blood Cell (RBC) Count 3.17 mill/uL (4.20-5.40)
[2019-10-10] MEDS: Amiodarone 200 MG TAB PO SCH (09:06)
[2019-10-10] MEDS: Losartan 25 MG TAB PO SCH (09:07)
[2019-10-10] MEDS: Pantoprazole 40 MG VIAL IVP SCH ×2 (09:07→20:05)
--- NOTE | 2019-10-10 10:45 | PDOC.HOSPP ---
- Subjective Encounter Date: 10/10/19 Encounter Time: 07:00 Subjective: Patient seen and examined. No new complaints. No overnight events, pt does not know how to use peg tube - Objective Vital Signs & Weight: Vital Signs (12 hours) Temp Pulse Resp BP Pulse Ox 10/10/19 08:21 98.1 F 70 18 167/79 H 95 10/10/19 04:00 98.5 F 78 16 185/84 H 93 L 10/10/19 00:00 98.6 F 76 18 174/75 H 93 L Weight Admit Weight 169 lb 8 oz Weight 169 lb 8 oz I&O: 10/09/19 10/10/19 10/11/19 06:59 06:59 06:59 Intake Total 1539 30 Balance 1539 30 Result Diagrams: 10/10/19 05:41 10/10/19 05:41 Hospitalist ROS - Review of Systems ENT: denies: ear pain, ear discharge, nose pain, nose discharge, nose congestion , mouth pain, mouth swelling, throat pain, throat swelling, other Respiratory: denies: cough, dry, shortness of breath, hemoptysis, SOB with excertion, pleuritic pain, sputum, wheezing, other Cardiovascular: denies: chest pain, palpitations, orthopnea, paroxysmal noc. dyspnea, edema, light headedness, other Gastrointestinal: denies: nausea, vomiting, abdominal pain, diarrhea, constipation, melena, hematochezia, other Genitourinary: denies: dysuria, frequency, incontinence, hematuria, retention, other Musculoskeletal: denies: neck pain, shoulder pain, arm pain, back pain, hand pain, leg pain, foot pain, other - Medication Medications: Active Medications Generic Name Dose Route Start Last Admin Trade Name Freq PRN Reason Stop Dose Admin Acetaminophen 650 mg 10/09/19 16:51 10/09/19 23:31 Tylenol Elixir PER TUBE 650 mg Q6H PRN Administration Pain Amiodarone HCl 100 mg 10/08/19 09:00 10/10/19 09:06 Cordarone PO 100 mg DAILY AC Administration Sodium Chloride 1,000 mls @ 75 mls/hr 10/07/19 17:00 10/09/19 20:39 Normal Saline 0.9% IV Not Given .[id number] AC Piperacillin Sod/Tazobactam 100 mls @ 200 mls/hr 10/07/19 22:00 10/10/19 04: 24 Sod 3.375 gm/ Sodium Chloride IVPB 100 mls 0400,1000,1600,2200 AC Administration Losartan Potassium 100 mg 10/08/19 09:00 10/10/19 09:07 Cozaar PO 100 mg DAILY AC Administration Metoprolol Succinate 100 mg 10/09/19 09:00 10/10/19 09:06 Toprol Xl PO 100 mg DAILY AC Administration Morphine Sulfate 2 mg 10/07/19 23:43 10/08/19 04:19 Morphine SLOW IVP 2 mg Q4H PRN Administration Severe Pain (7-10) Pantoprazole Sodium 40 mg 10/07/19 21:00 10/09/19 20:38 Protonix IVP 40 mg Q12HR AC Administration Sodium Chloride 10 ml 10/07/19 21:00 10/09/19 20:39 Flush - Normal Saline IVF 10 ml Q12HR AC Administration Sodium Chloride 10 ml 10/07/19 19:22 10/08/19 04:22 Flush - Normal Saline IVF 10 ml PRN PRN Administration Saline Flush - Exam General Appearance: NAD, awake alert Eye: PERRL, anicteric sclera ENT: normocephalic atraumatic, no oropharyngeal lesions Neck: supple, symmetric, no JVD, no thyromegaly Heart: RRR, no murmur, no gallops, no rubs Respiratory: CTAB, no wheezes, no rales, no ronchi Gastrointestinal: soft, non-tender, non-distended, normal bowel sounds Gastrointestinal - other findings: peg tube in place Extremities: no cyanosis, no clubbing, no edema Skin: normal turgor, no lesions Neurological: no focal deficits Musculoskeletal: normal tone, normal strength Psychiatric: normal affect, normal behavior Hosp A/P (1) Aspiration pneumonia Code(s): J69.0 - PNEUMONITIS DUE TO INHALATION OF FOOD AND VOMIT Status: Acute (2) Dysphagia Code(s): R13.10 - DYSPHAGIA, UNSPECIFIED Status: Acute Qualifiers: Dysphagia type: esophageal phase Qualified Code(s): R13.10 - Dysphagia, unspecified (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 - MALIGNANT NEOPLASM OF ESOPHAGUS, UNSPECIFIED Status: Chronic (4) CKD (chronic kidney disease), stage III Status: Chronic (5) Chronic anticoagulation Code(s): 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 - 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 Status: Chronic (6) Dyslipidemia Code(s): E78.5 - HYPERLIPIDEMIA, UNSPECIFIED Status: Chronic (7) GERD (gastroesophageal reflux disease) Code(s): K21.9 - GASTRO-ESOPHAGEAL REFLUX DISEASE WITHOUT ESOPHAGITIS Status: Chronic (8) Hypertension Code(s): I10 - ESSENTIAL (PRIMARY) HYPERTENSION Status: Chronic (9) Obesity (BMI 30-39.9) Code(s): E66.9 - OBESITY, UNSPECIFIED Status: Chronic (10) PAF (paroxysmal atrial fibrillation) Code(s): I48.0 - PAROXYSMAL ATRIAL FIBRILLATION Status: Chronic - Plan old records reviewed/req, plan discussed w/ family 10/10/19 start PT/OT teach pt about peg tube feeding and peg care dc vanco continue zosyn change tube feeding to bolus feed expecting dc tomorrow
[2019-10-10] MEDS: Sodium Chloride 0.9% 1,000 ML IV SCH (12:03)
[2019-10-10] MEDS ORDERED: hydrALAZINE 20 MG/ML VIAL SLOW IVP PRN (18:51)
[2019-10-10] MEDS ORDERED: Amlodipine 10 MG TAB PO SCH (19:00)
[2019-10-11] MEDS: Piperacillin/Tazobactam 3.375 GM in Sodium Chloride 0.9% 100 ML IVPB SCH (04:26)
[2019-10-11] MEDS: Sodium Chloride 0.9% 1,000 ML IV SCH (04:26)
[2019-10-11 07:02] LABS: Anion Gap 8 mmol/L (10-20); BUN (Urea Nitrogen) 7 mg/dL (9.8-20.1); Calc. Creatinine Clearance 78 mL/min (70-130); Calcium 7.9 mg/dL (7.8-10.44); Carbon Dioxide 26 mmol/L (23-31); Chloride 106 mmol/L (98-107); Estimated GFR-MDRD Greater than 90; Glucose 103 mg/dL (83-110); Sodium 137 mmol/L (136-145)
[2019-10-11 07:06] LABS: Potassium 2.7 mmol/L (3.5-5.1)
[2019-10-11 07:50] LABS: Magnesium 1.4 mg/dL (1.6-2.6); Phosphorus 2.1 mg/dL (2.3-4.7)
[2019-10-11] MEDS ORDERED: Potassium Phosphate 30 MMOL in Sodium Chloride 0.9% 500 ML IVPB SCH (08:00)
[2019-10-11] MEDS ORDERED: Potassium Chloride 20 MEQ TAB PER TUBE SCH (08:00)
[2019-10-11] MEDS ORDERED: Magnesium 2 GM/50 ML 2 GM in Premix Bag 1 BAG IVPB SCH (08:00)
[2019-10-11 08:12] LABS: Mean Corpuscular HGB CONC 33.4 g/dL (32.0-36.0); Mean Corpuscular Hemoglobin 30.8 pg (27.0-31.0); Mean Corpuscular Volume 92.1 fL (78.0-98.0); Mean Platelet Volume 7.7 fL (7.4-10.4); Platelet Count 181 thou/uL (130-400); RBC Distribution Width 13.7 % (11.5-14.5); Red Blood Cell (RBC) Count 3.25 mill/uL (4.20-5.40); White Blood Cell (WBC) Count 3.3 thou/uL (4.8-10.8)
[2019-10-11 08:20] LABS: Band 15 % (5-11); Eosinophils 1 % (0-10); Lymphocytes 7 % (21-51); MDiff Complete? YES; Metamyelocyte 1 % (0-0); Monocytes 6 % (0-10); Myelocyte 3 % (0-0); Neutrophil 67 % (42-75); Platelet Morphology Comment Appears Adequate; Polychromasia SLIGHT = 2-3 cells (100X) (0-2/hpf)
[2019-10-11] MEDS ORDERED: Amlodipine 10 MG TAB PO SCH (09:00)
[2019-10-11] MEDS: Amlodipine 10 MG TAB PER TUBE SCH (10:11)
[2019-10-11] MEDS: Pantoprazole 40 MG GRANULES PACKET PER TUBE SCH ×2 (10:13→21:01)
[2019-10-11] MEDS: Metoprolol Tartrate 50 MG TAB PER TUBE SCH ×2 (10:13→21:01)
[2019-10-11] MEDS: Losartan 25 MG TAB PER TUBE SCH (10:13)
[2019-10-11] MEDS: Amiodarone 200 MG TAB PER TUBE SCH (10:14)
[2019-10-11] MEDS: Amoxicillin/Potassium Clav 875 MG TAB PER TUBE SCH ×2 (10:15→21:01)
[2019-10-11] MEDS: Apixaban 5 MG TAB PER TUBE SCH ×2 (10:19→21:01)
--- NOTE | 2019-10-11 12:36 | PDOC.HOSPP ---
- Subjective Encounter Date: 10/11/19 Encounter Time: 07:00 Subjective: Patient seen and examined. tube feeding started, pt is not tolerating tube feeding yet, today has abnormal lytes, No overnight events - Objective Vital Signs & Weight: Vital Signs (12 hours) Temp Pulse Resp BP BP BP BP 10/11/19 12:00 98.6 F 72 19 136/63 10/11/19 10:40 162/84 H 10/11/19 10:11 93 170/76 H 10/11/19 10:08 10/11/19 08:00 99.6 F 98 18 156/72 H 10/11/19 03:51 98.0 F 90 16 148/65 H Pulse Ox 10/11/19 12:00 95 10/11/19 10:40 10/11/19 10:11 10/11/19 10:08 94 L 10/11/19 08:00 93 L 10/11/19 03:51 94 L Weight Admit Weight 169 lb 8 oz Weight 169 lb 8 oz I&O: 10/10/19 10/11/19 10/12/19 06:59 06:59 06:59 Intake Total 30 908 Balance 30 908 Result Diagrams: 10/11/19 06:30 10/11/19 06:30 Hospitalist ROS - Review of Systems ENT: denies: ear pain, ear discharge, nose pain, nose discharge, nose congestion , mouth pain, mouth swelling, throat pain, throat swelling, other Respiratory: denies: cough, dry, shortness of breath, hemoptysis, SOB with excertion, pleuritic pain, sputum, wheezing, other Cardiovascular: denies: chest pain, palpitations, orthopnea, paroxysmal noc. dyspnea, edema, light headedness, other Gastrointestinal: denies: nausea, vomiting, abdominal pain, diarrhea, constipation, melena, hematochezia, other Genitourinary: denies: dysuria, frequency, incontinence, hematuria, retention, other Musculoskeletal: denies: neck pain, shoulder pain, arm pain, back pain, hand pain, leg pain, foot pain, other - Medication Medications: Active Medications Generic Name Dose Route Start Last Admin Trade Name Freq PRN Reason Stop Dose Admin Acetaminophen 650 mg 10/09/19 16:51 10/09/19 23:31 Tylenol Elixir PER TUBE 650 mg Q6H PRN Administration Pain Amiodarone HCl 100 mg 10/11/19 09:00 10/11/19 10:14 Cordarone PER TUBE 100 mg DAILY AC Administration Amlodipine Besylate 10 mg 10/11/19 09:00 10/11/19 10:11 Norvasc PER TUBE 10 mg DAILY AC Administration Amoxicillin/Clavulanate Potassium 875 mg 10/11/19 09:00 10/11/19 10:15 Augmentin PER TUBE 875 mg Q12HR AC Administration Apixaban 5 mg 10/11/19 09:00 10/11/19 10:19 Eliquis PER TUBE 5 mg BID AC Administration Potassium Phosphate 30 mmol/ 510 mls @ 63.75 mls/hr 10/11/19 08:00 10/11/19 11:30 Sodium Chloride IVPB 10/11/19 15:59 510 mls NOW AC Administration Losartan Potassium 100 mg 10/11/19 07:31 10/11/19 10:13 Cozaar PER TUBE 100 mg DAILY AC Administration Metoprolol Tartrate 50 mg 10/11/19 09:00 10/11/19 10:13 Lopressor PER TUBE 50 mg BID AC Administration Morphine Sulfate 2 mg 10/07/19 23:43 10/08/19 04:19 Morphine SLOW IVP 2 mg Q4H PRN Administration Severe Pain (7-10) Pantoprazole Sodium 40 mg 10/11/19 09:00 10/11/19 10:13 Protonix PER TUBE 40 mg BID AC Administration Sodium Chloride 10 ml 10/07/19 21:00 10/11/19 10:13 Flush - Normal Saline IVF 10 ml Q12HR AC Administration Sodium Chloride 10 ml 10/07/19 19:22 10/08/19 04:22 Flush - Normal Saline IVF 10 ml PRN PRN Administration Saline Flush - Exam General Appearance: NAD, awake alert Eye: PERRL, anicteric sclera ENT: normocephalic atraumatic, no oropharyngeal lesions Neck: supple, symmetric, no JVD, no thyromegaly Heart: RRR, no murmur, no gallops, no rubs Respiratory: CTAB, no wheezes, no rales, no ronchi Gastrointestinal: soft, non-tender, non-distended, normal bowel sounds Gastrointestinal - other findings: peg tube+ Extremities: no cyanosis, no clubbing Skin: normal turgor, no lesions Neurological: no focal deficits Musculoskeletal: normal tone, normal strength Psychiatric: normal affect, normal behavior Hosp A/P (1) Aspiration pneumonia Code(s): J69.0 - PNEUMONITIS DUE TO INHALATION OF FOOD AND VOMIT Status: Acute (2) Dysphagia Code(s): R13.10 - DYSPHAGIA, UNSPECIFIED Status: Acute Qualifiers: Dysphagia type: esophageal phase Qualified Code(s): R13.10 - Dysphagia, unspecified Plan: this pt has dysphagia, due to mechanical obstruction, she has progressive adenocarcinoma of GE junction, she can not swallow duet to that, she does not need swallow evaluation as this is mechanical problem, she is not a candidate for any surgery due to her age and other comorbidity, she can survive only through tube feeding, that's why peg is place and she needs tube feeding material (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 - MALIGNANT NEOPLASM OF ESOPHAGUS, UNSPECIFIED Status: Chronic (4) CKD (chronic kidney disease), stage III Status: Chronic (5) Chronic anticoagulation Code(s): 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 Status: Chronic (6) Dyslipidemia Code(s): E78.5 - HYPERLIPIDEMIA, UNSPECIFIED Status: Chronic (7) GERD (gastroesophageal reflux disease) Code(s): K21.9 - GASTRO-ESOPHAGEAL REFLUX DISEASE WITHOUT ESOPHAGITIS Status: Chronic (8) Hypertension Code(s): I10 - ESSENTIAL (PRIMARY) HYPERTENSION Status: Chronic (9) Obesity (BMI 30-39.9) Code(s): E66.9 - OBESITY, UNSPECIFIED Status: Chronic (10) PAF (paroxysmal atrial fibrillation) Code(s): I48.0 - PAROXYSMAL ATRIAL FIBRILLATION Status: Chronic - Plan old records reviewed/req 10/10/19 start PT/OT teach pt about peg tube feeding and peg care dc vanco continue zosyn change tube feeding to bolus feed expecting dc tomorrow 10/11/19 replace potassium phosphate, magnesium sulfate continue tube feeding as tolerated, case specialist to arrange tube feeding this pt has dysphagia, due to mechanical obstruction, she has progressive adenocarcinoma of GE junction, she can not swallow duet to that, she does not need swallow evaluation as this is mechanical problem, she is not a candidate for any surgery due to her age and other commorbidity, she can survive only through tube feeding, that's why peg is place and she needs tube feeding material
[2019-10-11 16:02] LABS: Magnesium 1.9 mg/dL (1.6-2.6); Phosphorus 2.1 mg/dL (2.3-4.7); Potassium 3.6 mmol/L (3.5-5.1)
[2019-10-11] MEDS ORDERED: Rosuvastatin 5 MG TAB PER TUBE SCH (21:00)
[2019-10-12 03:01] LABS: Anion Gap 10 mmol/L (10-20); BUN (Urea Nitrogen) 8 mg/dL (9.8-20.1); Calc. Creatinine Clearance 79 mL/min (70-130); Calcium 8.4 mg/dL (7.8-10.44); Carbon Dioxide 25 mmol/L (23-31); Chloride 108 mmol/L (98-107); Estimated GFR-MDRD Greater than 90; Glucose 106 mg/dL (83-110); Potassium 3.5 mmol/L (3.5-5.1); Sodium 139 mmol/L (136-145)
[2019-10-12] MEDS ORDERED: K-Phos Neutral 250 MG TAB PER TUBE SCH (07:30)
[2019-10-12] MEDS: Apixaban 5 MG TAB PER TUBE SCH (08:19)
[2019-10-12] MEDS: Amoxicillin/Potassium Clav 875 MG TAB PER TUBE SCH (08:19)
[2019-10-12] MEDS: Amiodarone 200 MG TAB PER TUBE SCH (08:19)
[2019-10-12] MEDS: Amlodipine 10 MG TAB PER TUBE SCH (08:20)
[2019-10-12 08:23] VITALS: BP 145/78
[2019-10-12] MEDS: Losartan 25 MG TAB PER TUBE SCH (08:23)
[2019-10-12] MEDS: Pantoprazole 40 MG GRANULES PACKET PER TUBE SCH (08:23)
[2019-10-12] MEDS: Metoprolol Tartrate 50 MG TAB PER TUBE SCH (08:23)
--- NOTE | 2019-10-12 10:02 | PQF ---
INNA HELTON SALIM NOORJIBHAI MD [id number] [id number] CLINICAL DOCUMENTATION IMPROVEMENT CLARIFICATION FORM: ICD-10 Updated PLEASE DO AN ADDENDUM TO THE PROGRESS NOTE WITH ANY DOCUMENTATION UPDATES OR ADDITIONS AND CARRY THROUGH TO DC SUMMARY. THANK YOU. Date: 10/12/2019 ATTN: DR. Margarita BILLINGS Please exercise your independent, professional judgment in responding to the clarification form. Clinical indicators are provided on the bottom of this form for your review. Please check appropriate box(s): [ x ] Protein Calorie Malnutrition: [ x ] Mild [ ] Moderate [ ] Severe [ ] Other Malnutrition (please specify) __ [ ] Underweight without malnutrition [ ] Cachexia [ ] Other diagnosis [ ] Unable to determine In addition, please specify: Present on Admission (POA): [ x ] Yes [ ] No [ ] Unable to determine CLINICAL INDICATORS - SIGNS / SYMPTOMS / LABS / RESULTS AND LOCATION IN MR 10/07 ED REPORT: ED PHYSICIAN FINAL DX -- INABILITY TO TOLERATE PO, ESOPHAGEAL CANCER, CHEST PAIN 10/07 H & P (FICKLEN) IMPRESSION AND PLAN: 1). ESOPHAGEAL CANCER WITH RELATED SEVERE DYSPHAGIA. AT THIS POINT, THE PATIENT IS VERY INTERMITTENTLY ABLE TO TAKE ANY P.O. AND DOES NOT APPEAR TO BE CAPABLE OF TAKING ADEQUATE AMOUNTS AT THIS TIME. 10/08 GUEST RELATIONS RECEPTIONIST ASSESSMENT: PT REPORTS DIFFICULTY SWALLOWING SINCE , HAS PROGRESSIVELY WORSENED AND STATES SHE REALLY HASN'T BEEN ABLE TO SWALLOW EVEN LIQUID FOR THE LAST WEEK; ; NUTRITION DX MALNUTRITION R/T ESOPHAGEAL CANCER, DYSPHAGIA EVIDENCED BY -3.1% WEIGH LOSS IN 1 WEEK SUGGESTIVE OF SEVERE MALNUTRITION IN THE CONTEXT OF ACUTE PRESENTATION WITH CHRONIC ILLNESS. 10/08 GI CONSULT ( CASE) ASSESSMENT / PLAN : 1). PROGRESSIVE DYSPHAGIA, PLAN FOR EGD AND PROBABLE PEG 10/08 PN (FICKLEN) APPEARS TO BE HAVING SOME OBSTRUCTION AND INCREASING HER RISK FOR ASPIRATION RISK: ESOPHAGEAL ADENOCARCINOMA, DYSPHAGIA, ADVANCED AGE ( 89) , ASPIRATION PNEUMONIA (PN/FICKLEN) 10/08 TREATMENTS: GI CONSULT (CASE/10/08) GUEST RELATIONS RECEPTIONIST CONSULT (10/08) PEG TUBE PLACEMENT ( 10/09/AARTI) Moderate Malnutrition (in acute illness) Energy Intake: <75% of estimated energy requirement for > 7 days Weight Loss: 1-2%/1 week; 5%/ 1 month; 7.5%/3 months Other: mild body fat loss; mild muscle mass loss; mild fluid accumulation; Severe Malnutrition (in acute illness) Energy Intake: < 50% of estimated energy requirement for > 5 days Weight Loss: >1-2%/1 week; >5%/1 month; >7.5%/3 months Other: moderate body fat loss; moderate muscle mass loss; moderate- severe fluid accumulation; measurably reduced lining folder strength Moderate Malnutrition (in chronic illness) Energy Intake: <75% of estimated energy requirement for >1 month Weight Loss: 5%/1 month; 7.5%/3 months; 10%/6 months; 20%/1 year Other: mild body fat loss; mild muscle mass loss; mild fluid accumulation Severe Malnutrition (in chronic illness) Energy Intake: <75% of estimated energy requirement for >1 month Weight Loss: >5%/1 month; >7.5%/3 months; >10%/6 months; >20%/1 year Other: severe body fat loss; severe muscle mass loss; severe fluid accumulation ; measurably reduced lining folder strength THANK YOU! TREY (This form is maintained as a part of the permanent medical record) 2014 [employer] All Rights Reserved [email or web address] [phone] [email or web address]
[2019-10-12 10:32] VITALS: TEMP 97.7
--- NOTE | 2019-10-12 10:35 | PDOC.HOSPP ---
- Subjective Encounter Date: 10/12/19 Encounter Time: 07:00 Subjective: Patient seen and examined. No new complaints. No overnight events - Objective Vital Signs & Weight: Vital Signs (12 hours) Temp Pulse Resp BP BP Pulse Ox 10/12/19 08:20 91 145/78 H 10/12/19 08:00 97.7 F 95 18 145/78 H 94 L 10/12/19 00:00 99.2 F Weight Admit Weight 169 lb 8 oz Weight 169 lb 8 oz I&O: 10/11/19 10/12/19 10/13/19 06:59 06:59 06:59 Intake Total 908 1541 Balance 908 1541 Result Diagrams: 10/11/19 06:30 10/12/19 02:30 Hospitalist ROS - Review of Systems ENT: denies: ear pain, ear discharge, nose pain, nose discharge, nose congestion , mouth pain, mouth swelling, throat pain, throat swelling, other Respiratory: denies: cough, dry, shortness of breath, hemoptysis, SOB with excertion, pleuritic pain, sputum, wheezing, other Cardiovascular: denies: chest pain, palpitations, orthopnea, paroxysmal noc. dyspnea, edema, light headedness, other Gastrointestinal: denies: nausea, vomiting, abdominal pain, diarrhea, constipation, melena, hematochezia, other Genitourinary: denies: dysuria, frequency, incontinence, hematuria, retention, other Musculoskeletal: denies: neck pain, shoulder pain, arm pain, back pain, hand pain, leg pain, foot pain, other - Medication Medications: Active Medications Generic Name Dose Route Start Last Admin Trade Name Freq PRN Reason Stop Dose Admin Acetaminophen 650 mg 10/09/19 16:51 10/09/19 23:31 Tylenol Elixir PER TUBE 650 mg Q6H PRN Administration Pain Amiodarone HCl 100 mg 10/11/19 09:00 10/12/19 08:19 Cordarone PER TUBE 100 mg DAILY AC Administration Amlodipine Besylate 10 mg 10/11/19 09:00 10/12/19 08:20 Norvasc PER TUBE 10 mg DAILY AC Administration Amoxicillin/Clavulanate Potassium 875 mg 10/11/19 09:00 10/12/19 08:19 Augmentin PER TUBE 875 mg Q12HR AC Administration Apixaban 5 mg 10/11/19 09:00 10/12/19 08:19 Eliquis PER TUBE 5 mg BID AC Administration Losartan Potassium 100 mg 10/11/19 07:31 10/12/19 08:23 Cozaar PER TUBE 100 mg DAILY AC Administration Metoprolol Tartrate 50 mg 10/11/19 09:00 10/12/19 08:23 Lopressor PER TUBE 50 mg BID AC Administration Morphine Sulfate 2 mg 10/07/19 23:43 10/08/19 04:19 Morphine SLOW IVP 2 mg Q4H PRN Administration Severe Pain (7-10) Pantoprazole Sodium 40 mg 10/11/19 09:00 10/12/19 08:23 Protonix PER TUBE 40 mg BID AC Administration Rosuvastatin Calcium 5 mg 10/11/19 21:00 10/11/19 21:01 Crestor PER TUBE 5 mg HS AC Administration Sodium Chloride 10 ml 10/07/19 21:00 10/12/19 09:55 Flush - Normal Saline IVF 10 ml Q12HR AC Administration Sodium Chloride 10 ml 10/07/19 19:22 10/08/19 04:22 Flush - Normal Saline IVF 10 ml PRN PRN Administration Saline Flush - Exam General Appearance: NAD, awake alert Eye: PERRL, anicteric sclera ENT: normocephalic atraumatic, no oropharyngeal lesions Neck: supple, symmetric, no JVD, no thyromegaly Heart: RRR, no murmur, no gallops, no rubs Respiratory: CTAB, no wheezes, no rales, no ronchi Gastrointestinal: soft, non-tender, non-distended, normal bowel sounds Gastrointestinal - other findings: peg tube+ Extremities: no cyanosis, no clubbing, no edema Skin: normal turgor, no lesions Neurological: no focal deficits Musculoskeletal: normal tone, normal strength Psychiatric: normal affect, normal behavior Hosp A/P (1) Aspiration pneumonia Code(s): J69.0 - PNEUMONITIS DUE TO INHALATION OF FOOD AND VOMIT Status: Acute (2) Dysphagia Code(s): R13.10 - DYSPHAGIA, UNSPECIFIED Status: Acute Qualifiers: Dysphagia type: esophageal phase Qualified Code(s): R13.10 - Dysphagia, unspecified (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 - MALIGNANT NEOPLASM OF ESOPHAGUS, UNSPECIFIED Status: Chronic (4) CKD (chronic kidney disease), stage III Status: Chronic (5) Chronic anticoagulation Code(s): Z79.01 - LONGTERM (CURRENT) USE OF ANTICOAGULANTS Status: Chronic (6) Dyslipidemia Code(s): E78.5 - HYPERLIPIDEMIA, UNSPECIFIED Status: Chronic (7) GERD (gastroesophageal reflux disease) Code(s): K21.9 - GASTRO-ESOPHAGEAL REFLUX DISEASE WITHOUT ESOPHAGITIS Status: Chronic (8) Hypertension Code(s): I10 - ESSENTIAL (PRIMARY) HYPERTENSION Status: Chronic (9) Obesity (BMI 30-39.9) Code(s): E66.9 - OBESITY, UNSPECIFIED Status: Chronic (10) PAF (paroxysmal atrial fibrillation) Code(s): I48.0 - PAROXYSMAL ATRIAL FIBRILLATION Status: Chronic - Plan old records reviewed/req 10/10/19 start PT/OT teach pt about peg tube feeding and peg care dc vanco continue zosyn change tube feeding to bolus feed expecting dc tomorrow 10/11/19 replace potassium phosphate, magnesium sulfate continue tube feeding as tolerated, comp field case manager to arrange tube feeding this pt has dysphagia, due to mechanical obstruction, she has progressive adenocarcinoma of GE junction, she can not swallow duet to that, she does not need swallow evaluation as this is mechanical problem, she is not a candidate for any surgery due to her age and other commorbidity, she can survive only through tube feeding, that's why peg is place and she needs tube feeding material 10/12/19 see discharge estephania ross [facility]
--- NOTE | 2019-10-12 12:30 | DIS ---
DATE OF ADMISSION: 10/07/2019 DATE OF DISCHARGE: 10/12/2019 PRIMARY CARE PHYSICIAN: [facility] Call admission. DISCHARGE DISPOSITION: Home with home health. PRIMARY DISCHARGE DIAGNOSES: 1. Dysphagia due to worsening of underlying adenocarcinoma of esophagus, required PEG tube placement. 2. Aspiration pneumonia. SECONDARY DISCHARGE DIAGNOSES: Paroxysmal atrial fibrillation, obesity, hypertension, gastroesophageal reflux disease, esophageal adenocarcinoma, dyslipidemia, chronic kidney disease stage 3, chronic anticoagulation, and chronic diastolic heart failure. PRIMARY PROCEDURE/OPERATION: Percutaneous endoscopic gastrostomy tube placement. RADIOLOGICAL INVESTIGATION: Chest x-ray, CT angiography. SIGNIFICANT LABORATORY DATA: WBC 3.3, hemoglobin 10.0, platelet 181. Sodium 139 and creatinine 0.61. DISCHARGE MEDICATIONS: 1. Augmentin 875 mg twice daily for 5 more days. 2. Amiodarone 100 mg per tube daily. 3. Amlodipine 10 mg daily. 4. Eliquis 5 mg b.i.d. 5. Lopressor 50 mg b.i.d. 6. Benicar 40 mg daily. 7. Protonix 40 mg b.i.d. 8. Crestor 5 mg at bedtime. CONTRAINDICATION: None. CODE STATUS: DNR. INPATIENT CONSULTANTS: Radiation Oncology, Dr. Anderson; Gastroenterology for PEG tube; Oncology for adenocarcinoma. TEST RESULTS PENDING ON DISCHARGE: None. ALLERGIES: BACITRACIN, NEOMYCIN, AND POLYMYXIN. DISCHARGE PLAN: Posthospital, the patient will follow up with Oncology as instructed. The patient will follow up with her primary care physician. HOSPITAL COURSE: An 89-year-old female with above-mentioned medical problem, who was admitted by Dr. Villela. Please see his H and P for further details. The patient was having dysphagia because of worsening of underlying esophageal carcinoma and the patient was having cough and chest discomfort. The patient was also found with aspiration pneumonia. The patient was treated with Zosyn. On discharge, we changed to Augmentin. As the patient is not able to swallow p.o. because of mechanical obstruction, that is why she required PEG tube placement and we started tube feeding. Necessary PEG tube feeding arrangement was done. Home health was arranged. Abnormal electrolytes were corrected. The patient was stable for discharge on the day of discharge. The patient is seen and examined at bedside today. Please see my progress note from that day. Job ID: [id number]
--- NOTE | 2019-10-13 14:51 | EKG ---
Test Reason : Blood Pressure : / mmHG Vent. Rate : 080 BPM Atrial Rate : 080 BPM P-R Int : 198 ms QRS Dur : 090 ms QT Int : 416 ms P-R-T Axes : 012 009 -24 degrees QTc Int : 479 ms Normal sinus rhythm Voltage criteria for left ventricular hypertrophy T wave abnormality, consider inferior ischemia Prolonged QT Abnormal ECG Confirmed by SUSI MCKENNA, JORGE ([id number]), dictionary editor DALLAS MCNEILL ([id number]) on 10/13/2019 2:51:23 PM Referred By: Confirmed By:JORGE GOLDMAN MD
== END 2019-10-12 10:58 | disposition home health service (06) | DRG 374 ==
LOC: ERS 11:42 → ONC 19:25
PROVIDERS: ADMIT Internal Medicine; ATTEND Internal Medicine
PROC: 0DH63UZ Insertion of Feeding Device into Stomach, Percutaneous Approach (ICD-10-PCS; principal; 2019-10-09)
DX: C16.0 Malignant neoplasm of cardia (principal); J69.0 Pneumonitis due to inhalation of food and vomit; I13.0 Hypertensive heart and chronic kidney disease with heart failure and stage 1 through stage 4 chronic kidney disease, or unspecified chronic kidney disease; I50.32 Chronic diastolic (congestive) heart failure; C92.40 Acute promyelocytic leukemia, not having achieved remission; E44.1 Mild protein-calorie malnutrition; Z66 Do not resuscitate; I48.0 Paroxysmal atrial fibrillation; E66.9 Obesity, unspecified; K21.9 Gastro-esophageal reflux disease without esophagitis; G47.30 Sleep apnea, unspecified; R13.12 Dysphagia, oropharyngeal phase; E78.5 Hyperlipidemia, unspecified; N18.3 Chronic kidney disease, stage 3 (moderate); Z96.653 Presence of artificial knee joint, bilateral; Z96.612 Presence of left artificial shoulder joint; Z68.30 Body mass index [BMI] 30.0-30.9, adult; Z85.3 Personal history of malignant neoplasm of breast; Z90.11 Acquired absence of right breast and nipple; Z79.01 Long term (current) use of anticoagulants; Z79.899 Other long term (current) drug therapy; Z88.1 Allergy status to other antibiotic agents; Z86.718 Personal history of other venous thrombosis and embolism; D70.1 Agranulocytosis secondary to cancer chemotherapy; T45.1X5A Adverse effect of antineoplastic and immunosuppressive drugs, initial encounter; I25.10 Atherosclerotic heart disease of native coronary artery without angina pectoris
CPT/HCPCS: 36415; 71045; 71275; 77386; 80048; 80053; 80202; 83605; 83690; 83735; 83880; 84100; 84484; 85025; 86850; 86870; 86900; 86901; 86905; 86922; 87040; 87804; 93005; 94760; 96361; 96374; C9113; J2270; J2543; J2704; J3010; J3370; J3475; J3480; J3490; J7050; Q9967